=== PATIENT | female | born 1990 ===

== ENCOUNTER 2017-10-28 16:25 | Inpatient (IN) | payer OTHER, SELFPAY ==
[2017-10-28 17:11] LABS: #Basophils 0.1 thou/uL (0.0-0.2); #Eosinphils 0.1 thou/uL (0.0-0.7); #Monocytes 0.8 thou/uL (0.11-0.59); #Neutrophils 8.1 thou/uL (1.40-6.50); %Basophils 0.6 % (0.0-1.0); %Eosinophils 0.5 % (0.0-10.0); %Lymphocytes 24.9 % (21.0-51.0); %Monocytes 6.8 % (0.0-10.0); %Neutrophils 67.3 % (42.0-75.0); Hemoglobin 14.8 g/dL (12.0-16.0); Mean Corpuscular HGB CONC 32.2 g/dL (32.0-36.0); Mean Corpuscular Hemoglobin 29.1 pg (27.0-31.0); Mean Corpuscular Volume 90.4 fl (81.0-99.0); Mean Platelet Volume 8.6 fL (7.4-10.4); Platelet Count 277 thou/uL (130-400); RBC Distribution Width 12.4 % (11.5-14.5); Red Blood Cell (RBC) Count 5.09 mill/uL (4.20-5.40); White Blood Cell (WBC) Count 12.1 thou/uL (4.8-10.8)
[2017-10-28 17:19] LABS: Bilirubin Negative (Negative); Blood, Urine Negative (Negative); Clarity CLEAR (Clear); Glucose, Urine (Dipstick) >=1000 mg/dL (Negative); Leukocyte Negative (Negative); Nitrite Negative (Negative); Protein, Urine (Dipstick) Negative (Neg-Trace); Specific Gravity, Urine 1.035 (1.002-1.036); Urobilinogen 0.2 mg/dL (0.2-1.0); pH, Urine 5.5 (5.0-9.0)
[2017-10-28 17:33] LABS: Base Excess-Venous -0.5 mmol/L (0 (+/- 2.5)); CO2 Tension (PvCO2) 53.3 mmHg (41.0-51.0); Calcium, Ionized 1.07 mmol/L (1.12-1.32); Hemoglobin - Calc 16.8 g/dL (12.0-18.0); O2 Tension (PvO2) 27.9 mmHg (35.0-45.0); Potassium 5.7 mmol/L (3.4-4.7); T. Carbon Dioxide 28.6 mmol/L (1.0-85.0); pH (Venous) 7.312 (7.35-7.45); vO2 Saturation-calc 45.7 % (94-98)
[2017-10-28 17:35] LABS: BHCG - Serum Negative (NEGATIVE); Pregs Control Background? CLEAR/WHITE (CLR/WHITE); Pregs Control Bar Appear? YES (CONTROL BAR)
[2017-10-28 17:39] LABS: ALT (SGPT) 35 U/L (8-55); AST (SGOT) 18 U/L (5-34); Albumin 4.7 g/dL (3.5-5.0); Alkaline Phosphatase 175 U/L (40-150); Anion Gap 23 mmol/L (10-20); BUN (Urea Nitrogen) 14 mg/dL (7.0-18.7); Bilirubin, Total 0.7 mg/dL (0.2-1.2); Calc. Creatinine Clearance 0 mL/min (70-130); Calcium 9.6 mg/dL (7.8-10.44); Carbon Dioxide 19 mmol/L (22-29); Chloride 80 mmol/L (98-107); Estimated GFR-MDRD 24; Globulin 3.7 g/dL (2.4-3.5); Potassium 4.3 mmol/L (3.5-5.1); Protein, Total 8.4 g/dL (6.0-8.3)
[2017-10-28 17:43] LABS: Glucose 1320 mg/dL (70-105); Sodium 118 mmol/L (136-145)
[2017-10-28] MEDS ORDERED: Insulin Regular 100 units/100 ml in NS IVPB SCH (18:15)
[2017-10-28 19:40] LABS: ALT (SGPT) 30 U/L (8-55); AST (SGOT) 18 U/L (5-34); Albumin 3.8 g/dL (3.5-5.0); Alkaline Phosphatase 125 U/L (40-150); Anion Gap 17 mmol/L (10-20); BUN (Urea Nitrogen) 12 mg/dL (7.0-18.7); Bilirubin, Total 0.5 mg/dL (0.2-1.2); Calc. Creatinine Clearance 0 mL/min (70-130); Carbon Dioxide 21 mmol/L (22-29); Chloride 99 mmol/L (98-107); Estimated GFR-MDRD 42; Globulin 2.9 g/dL (2.4-3.5); Glucose 735 mg/dL (70-105); Potassium 4.7 mmol/L (3.5-5.1); Protein, Total 6.7 g/dL (6.0-8.3); Sodium 132 mmol/L (136-145)
[2017-10-28] MEDS ORDERED: CCU Electrolyte Replacement 1 EACH IVPB ONE (21:30)
[2017-10-28] MEDS ORDERED: Ondansetron HCl/PF 4 MG/2 ML Vial IVP PRN (21:30)
[2017-10-28] MEDS ORDERED: Acetaminophen 325 MG TAB PO PRN (21:30)
[2017-10-28] MEDS ORDERED: NS 0.9% w/ 20 MEQ KCL 1,000 ML IV PRN (21:30)
[2017-10-28] MEDS ORDERED: Ondansetron ODT 4 MG TAB PO PRN (21:30)
[2017-10-28] MEDS ORDERED: D5 1/2 NS w/20 mEq KCL 1,000 ML IV PRN (21:30)
[2017-10-28] MEDS ORDERED: Dextrose 5 %-0.45 % NaCl 1,000 ML IV PRN (21:30)
[2017-10-28] MEDS ORDERED: Acetaminophen 650 MG Suppository PR PRN (21:30)
[2017-10-28] MEDS ORDERED: Sodium Chloride 0.9% 1,000 ML IV PRN ×4 (21:30)
[2017-10-28] MEDS ORDERED: Bisacodyl 5 MG TAB PO PRN (21:30)
[2017-10-28] MEDS ORDERED: Magnesium 2 GM/NS 0.9% 100 ML 2 GM in Premix Bag 1 BAG IVPB PRN (21:38)
[2017-10-28] MEDS ORDERED: Potassium Phosphate 9 MMOL in Sodium Chloride 0.9% 100 ML IVPB PRN (21:38)
[2017-10-28] MEDS ORDERED: Potassium Chloride 40 MEQ in Premix Bag 1 BAG IVPB PRN (21:38)
[2017-10-28] MEDS ORDERED: Potassium Chloride 40 MEQ in Sodium Chloride 0.9% 250 ML 250 ML IVPB PRN (21:38)
[2017-10-28] MEDS ORDERED: Potassium Phosphate 15 MMOL in Sodium Chloride 0.9% 250 ML 250 ML IV PRN (21:38)
[2017-10-28] MEDS ORDERED: Potassium Chloride 20 MEQ TAB PO PRN (21:38)
[2017-10-28] MEDS ORDERED: Magnesium Oxide 400 MG TAB PO PRN ×2 (21:38)
[2017-10-28] MEDS ORDERED: CCU ELECTROLYTE REPLACEMENT PROTOCOL FS PRN (21:38)
[2017-10-28] MEDS ORDERED: Potassium Phosphate 12 MMOL in Sodium Chloride 0.9% 250 ML 250 ML IV PRN (21:38)
[2017-10-28] MEDS ORDERED: Docusate 100 MG CAP PO SCH (21:45)
[2017-10-28] MEDS ORDERED: Famotidine 20 MG TAB PO SCH (21:45)
[2017-10-28 22:26] LABS: Anion Gap 14 mmol/L (10-20); BUN (Urea Nitrogen) 10 mg/dL (7.0-18.7); Calc. Creatinine Clearance 94 mL/min (70-130); Calcium 9.1 mg/dL (7.8-10.44); Carbon Dioxide 25 mmol/L (22-29); Chloride 100 mmol/L (98-107); Estimated GFR-MDRD 49; Glucose 420 mg/dL (70-105); Potassium 4.1 mmol/L (3.5-5.1); Sodium 135 mmol/L (136-145)
[2017-10-28] MEDS: NS 0.9% w/ 20 MEQ KCL 1,000 ML IV PRN (22:35)
[2017-10-28] MEDS: Docusate 100 MG CAP PO SCH (22:36)
[2017-10-29] MEDS: NS 0.9% w/ 20 MEQ KCL 1,000 ML IV PRN (01:17)
[2017-10-29 02:21] LABS: #Basophils 0.1 thou/uL (0.0-0.2); #Eosinphils 0.2 thou/uL (0.0-0.7); #Lymphocytes 3.7 thou/uL (1.20-3.40); #Monocytes 0.7 thou/uL (0.11-0.59); #Neutrophils 4.8 thou/uL (1.40-6.50); %Basophils 0.8 % (0.0-1.0); %Eosinophils 2.3 % (0.0-10.0); %Lymphocytes 39.1 % (21.0-51.0); %Monocytes 7.3 % (0.0-10.0); %Neutrophils 50.6 % (42.0-75.0); Hemoglobin 12.3 g/dL (12.0-16.0); Mean Corpuscular HGB CONC 34.2 g/dL (32.0-36.0); Mean Corpuscular Hemoglobin 29.1 pg (27.0-31.0); Mean Corpuscular Volume 85.3 fl (81.0-99.0); Mean Platelet Volume 7.7 fL (7.4-10.4); Platelet Count 221 thou/uL (130-400); Red Blood Cell (RBC) Count 4.22 mill/uL (4.20-5.40); White Blood Cell (WBC) Count 9.4 thou/uL (4.8-10.8)
[2017-10-29 02:57] LABS: Anion Gap 10 mmol/L (10-20); BUN (Urea Nitrogen) 7 mg/dL (7.0-18.7); Calc. Creatinine Clearance 155 mL/min (70-130); Calcium 7.7 mg/dL (7.8-10.44); Carbon Dioxide 21 mmol/L (22-29); Chloride 110 mmol/L (98-107); Estimated GFR-MDRD 87; Glucose 166 mg/dL (70-105); Potassium 3.8 mmol/L (3.5-5.1); Sodium 137 mmol/L (136-145)
--- NOTE | 2017-10-29 03:00 | HP ---
PRIMARY CARE PHYSICIAN: TL Yu CHIEF COMPLAINT: Extreme thirst and weight loss. HISTORY OF PRESENT ILLNESS: This is a 27-year-old -[place]er female with a family history of early onset and type 2 diabetes mellitus, who presents with a 3-week history of heavy thirst, polyuria, and a couple of episodes of vomiting along with about a 15-pound weight loss. She denies any other complaints. She presented to the emergency room and was found to have a blood sugar of 1320 as well as a mild gap acidosis ketones and positive ketones, positive beta hydroxybutyrate in her serum. Patient was given IV fluids and insulin in the emergency room and is feeling much better. She has been admitted for new-onset diabetes mellitus with hyperosmotic hyperglycemia and mild ketoacidosis. PAST MEDICAL HISTORY: None. PAST SURGICAL HISTORY: None. PSYCHIATRIC HISTORY: Depression. SOCIAL HISTORY: No tobacco, alcohol, or illicit drug use. She is present in the room with her roommate as well as her boyfriend. She is estranged from her parents, but does have a sister she is close with Baylee Ramos, who she stated would be her medical power of ad copy writer. FAMILY HISTORY: Both parents with DM type 2, insulin dependent, early onset in 20s and 30s. No other family medical problems. ALLERGIES: No known drug allergies. CURRENT MEDICATIONS: 1. Zoloft. 2. Abilify dosage is not available at this time. REVIEW OF SYSTEMS: Constitutional: No fevers or chills. She has had a weight loss as per HPI. Eyes: No double vision. She has had progressively blurred vision over the last 3 weeks. ENT: No congestion, drainage, or sore throat. She has had very dry mouth all the time. Cardiovascular: No chest pain, no palpitations, or racing heart. Pulmonary: No coughing, wheezing, or shortness of breath. Gastrointestinal: She had some nausea and vomiting a few days ago with another episode this morning, but none since. No abdominal pain, no diarrhea or constipation. Genitourinary: Polyuria as per HPI. No dysuria or hematuria. Musculoskeletal: No muscle aches or joint pains. Skin: No rashes or lesions noted. Neurologic: Patient has had a little bit of dizziness is better now and she had some focal tingling in her left fingertips a few days ago and that resolved. No other numbness, tingling, or focal weakness. Psychiatric: She reports some baseline depression that is controlled. PHYSICAL EXAMINATION: VITAL SIGNS: Blood pressure 119/80, pulse 99, respirations 17, temperature 98.3 , O2 sat 99% on room air. GENERAL: This is a well-developed, obese female in no apparent distress. HEENT: Pupils equal, round, and reactive to light. EXTREMITIES: Intact. Oropharynx is clear without lesions, erythema, or exudate. NECK: Supple, no lymphadenopathy, no thyroid nodules or enlargement, no JVD. HEART: Regular rate and rhythm. No murmurs, rubs, or gallops. LUNGS: Clear to auscultation bilaterally. No wheezes, crackles, or rhonchi. ABDOMEN: Soft, nontender to palpation, normoactive bowel sounds, no hepatosplenomegaly or masses. EXTREMITIES: No clubbing, cyanosis, or edema. She has good peripheral pulses. SKIN: No rashes or lesions. NEUROLOGIC: Strength 5/5 in all extremities. Deep tendon reflexes 2+ in all extremities and she has no facial droop. PSYCHIATRIC: Alert and oriented x3, normal mood and affect. LABORATORY DATA: CBC with white blood cell count of 12.1. The remainder is normal. A VBG done in the emergency room showed a pH of 7.3 with a pCO2 of 53 and a pO2 of 27. Her initial complete metabolic panel showed a sodium of 118, chloride of 80, bicarbonate of 19, anion gap of 23, creatinine of 2.41, glucose of 1320, alkaline phosphatase of 175. Remainder was normal. Her test was negative. Lipase was negative. Creatine kinase is a little elevated at 222. Her serum osmolality was 326. Repeat complete metabolic panel after fluids in the emergency room showed a sodium of 132, potassium of 4.7, carbon dioxide of 21, and anion gap is closed at 17, creatinine of 1.49, and glucose of 735. Urine showed trace ketones and glucose greater than 1000. Toxicology showed beta-hydroxybutyrate of 0.43 with some mild elevation. ASSESSMENT: 1. New-onset diabetes mellitus likely type 2 due to the severe elevations and blood sugars with only minimal ketosis. Patient is responding well to fluids and insulin. We will continue insulin drip and continue fluids as per the diabetic ketoacidosis protocol. We will give potassium as well as per the protocol. We will admit patient to the IMCU and monitor closely and will likely start her on basal insulin in the morning. For now, we will give her clear liquid diet, but can advance that as tolerated especially, as we get the blood sugar down. 2. Acute renal failure likely secondary to dehydration from the osmotic diuresis of the blood sugar. We will continue IV fluids. I anticipate continued resolution of her creatinine and sodium improved markedly. 3. Depression. We will continue patient's home medication before. 4. Gastrointestinal prophylaxis. Put patient on Pepcid twice a day. 5. Deep venous thrombosis prophylaxis. Put patient on sequential compression devices on bed on Lovenox subcutaneous. CODE STATUS: I did discuss with patient. She is a FULL CODE. Should she be incapacitated her medical power of ad copy writer would be her sister Baylee Ramos as well as her boyfriend Dirk Kennedy. [facility]
[2017-10-29 05:58] LABS: Anion Gap 8 mmol/L (10-20); BUN (Urea Nitrogen) 6 mg/dL (7.0-18.7); Calc. Creatinine Clearance 145 mL/min (70-130); Calcium 7.4 mg/dL (7.8-10.44); Carbon Dioxide 21 mmol/L (22-29); Chloride 107 mmol/L (98-107); Estimated GFR-MDRD 80; Glucose 254 mg/dL (70-105); Potassium 3.9 mmol/L (3.5-5.1); Sodium 132 mmol/L (136-145)
[2017-10-29 06:02] VITALS: BMI 30.7
[2017-10-29] MEDS: Docusate 100 MG CAP PO SCH ×2 (08:50→20:36)
[2017-10-29] MEDS ORDERED: Enoxaparin Sodium 40 MG/0.4 ML SYRINGE SC SCH (09:00)
[2017-10-29] MEDS ORDERED: Famotidine 20 MG TAB PO SCH (09:00)
--- NOTE | 2017-10-29 10:20 | PDOC.PN ---
- Subjective Encounter Start Date: 10/29/17 Encounter Start Time: 12:00 Subjective: Patient feeling much better. Blood sugars improved overnight. -: No N/V or abdominal pain. Tolerating clears diet well. - Objective Resuscitation Status: Resuscitation Status FULL:Full Resuscitation MAR Reviewed: Yes Vital Signs & Weight: Vital Signs (12 hours) Temp Pulse Resp BP Pulse Ox 10/29/17 07:30 99.0 F 104 H 17 99 10/29/17 07:12 99.0 F 104 H 17 98/72 99 10/29/17 04:00 97.8 F 96 18 113/79 100 Weight Weight 202 lb 15.991 oz I&O: 10/28/17 10/29/17 10/30/17 06:59 06:59 06:59 Intake Total 3303 969 Output Total 450 Balance 2853 969 Result Diagrams: 10/29/17 01:43 10/29/17 05:24 Additional Labs: Accuchecks 10/29/17 10/29/17 10/29/17 10:05 09:08 08:11 POC Glucose 203 H 226 H 217 H 10/29/17 10/29/17 10/29/17 07:25 06:12 05:06 POC Glucose 216 H 224 H 252 H 10/29/17 10/29/17 10/29/17 04:07 03:14 02:19 POC Glucose 206 H 141 H 148 H 10/29/17 10/29/17 10/28/17 01:16 00:09 23:08 POC Glucose 195 H 228 H 249 H 10/28/17 10/28/17 22:24 21:18 POC Glucose 290 H 467 H Phys Exam - Physical Examination Constitutional: NAD HEENT: moist MMs Respiratory: no wheezing, no rales, no rhonchi Cardiovascular: RRR, no significant murmur Gastrointestinal: soft, non-tender, positive bowel sounds Neurological: non-focal, moves all 4 limbs Psychiatric: normal affect, A&O x 3 Dx/Plan (1) Diabetes mellitus with hyperosmolarity without hyperglycemic hyperosmolar nonketotic coma Code(s): E11.00 - TYPE 2 DIAB W HYPROSM W/O NONKET HYPRGLY-HYPROS COMA ([facility]) Status: Acute Comment: new onset DM, hyperglycemia resolved, will d/c D5 in fluids, switch to diabetic diet, start Lantus now 10 units, d/c insulin drip in 3 hours, start Metformin, diabetic and insulin admin education (2) DKA (diabetic ketoacidoses) Code(s): E13.10 - OTH DIABETES MELLITUS WITH KETOACIDOSIS WITHOUT COMA Status : Resolved Qualifiers: Diabetes mellitus type: type 2 Comment: mild, resolved (3) Acute renal failure Status: Resolved Comment: prerenal due to hyperglycemic diuresis, resolved (4) Depression Code(s): F32.9 - MAJOR DEPRESSIVE DISORDER, SINGLE EPISODE, UNSPECIFIED Status : Chronic - Plan cont current plan of care, DVT proph w/lovenox, DVT proph w/SCDs d/c insulin drip, start Metformin and Lantus, education, likely home -: tomorrow or possibly tonight * . - Discharge Day Encounter end time: 12:15
[2017-10-29] MEDS ORDERED: Dextrose 50% Abboject 50 ML SYRINGE IVP PRN (10:43)
[2017-10-29] MEDS ORDERED: Dextrose 5% in Water 1,000 ML IV PRN ×2 (10:43→12:55)
[2017-10-29] MEDS ORDERED: HumaLOG 300 UNITS/3 ML VIAL SC PRN (10:45)
[2017-10-29] MEDS ORDERED: Insulin Glargine 10 UNITS in Pre-Filled Syringe 1 EACH SC SCH (10:45)
[2017-10-29] MEDS ORDERED: metFORMIN 500 MG TAB PO SCH ×2 (10:45→17:00)
[2017-10-29] MEDS ORDERED: Sodium Chloride 0.9% 1,000 ML IV SCH (13:00)
--- NOTE | 2017-10-29 14:07 | CON ---
DATE OF CONSULTATION: 10/29/2017 SERVICE: Pulmonary Medicine. REASON FOR CONSULTATION: IMCU patient. HISTORY OF PRESENT ILLNESS: The patient is a 27-year-old -[place] female with past medical history significant for 15 pounds of weight loss, polyuria, and increased thirst. She presented to the Emergency Department with some of these complaints as well as high blood pressure and weakness. She was found to have an elevated blood sugar of 1300. She was ultimately given several boluses of fluid and put on an insulin drip. Overnight, her blood sugars were under much better control. She has essentially returned to usual state of health. She is tolerating p.o. and denies any current issues. PAST MEDICAL HISTORY: None. PAST SURGICAL HISTORY: None. SOCIAL HISTORY: Negative for alcohol, tobacco or illicit drug use. She is estranged from her parents. She has no exposure to chemicals, dust, asbestos or tuberculosis. FAMILY HISTORY: Both parents have diabetes mellitus, type 2. ALLERGIES: No known drug allergies. MEDICATIONS: List of her inpatient medications were reviewed. Multiple updates were made at this time. REVIEW OF SYSTEMS: General, head, ears, eyes, nose, throat, cardiovascular, respiratory, GI, , musculoskeletal, neurologic and skin is negative except as mentioned in the HPI. PHYSICAL EXAMINATION: VITAL SIGNS: Afebrile, pulse 103, blood pressure 101/62, respirations 19, saturation 98% on room air. GENERAL: The patient is awake, alert, no apparent distress. LUNGS: Excellent air entry. There is no prolonged expiratory phase. No wheezing, rhonchi, or crackles are appreciated. HEART: Normal rate and regular. ABDOMEN: Soft, nontender and nondistended. Bowel sounds are positive. MUSCULOSKELETAL: No cyanosis or clubbing. There is no pitting in the bilateral lower extremities. NEUROLOGIC: Grossly nonfocal. LABORATORY DATA: WBC 9.4, hemoglobin 12.3, and platelets 221. PH 7.31, pCO2 53 , pO2 28. Creatinine 0.85, which is down trending from 2.4. Basic metabolic profile is otherwise unremarkable with normal anion gap and improving bicarbonate level. Sodium 132 has significantly improved. Lipase is unremarkable. Liver function studies are also unremarkable. CK 222. Serum was unremarkable. Urinalysis is positive for glycosuria and ketonuria , which was trace. Beta hydroxybutyric acid was minimally elevated at 0.43. ASSESSMENT: 1. Type 2 diabetes mellitus, new onset. 2. Acute kidney injury, resolved. 3. Severe dehydration, resolved. 4. Starvation ketosis. PLAN: The patient will be transitioned off of the IV insulin on to p.o. medications, as well as some subcu insulin. Hopefully, the insulin will be titrated away as time goes on. She is not requiring much insulin in order to maintain her blood sugars. From my perspective, she is stable for transition to the medical unit. Pulmonary will continue to follow along for the time being , but she will need outpatient follow up with Endocrinology and/or primary care physician. 70 minutes have been devoted to this patient in various activities. I personally reviewed all imaging studies and laboratory data noted within this document. For fifty percent of this time, I was interacting with the patient at the bedside or coordinating care with the care team. For the remainder of the time I was immediately available to the patient in the hospital unit. ARELIS
[2017-10-29 19:42] VITALS: BP 111/66; TEMP 98.6
[2017-10-29] MEDS ORDERED: Insulin Glargine 8 UNITS in Pre-Filled Syringe 1 EACH SC SCH (21:00)
[2017-10-29] MEDS ORDERED: INSULIN DETEMIR SC SCH (21:00)
[2017-10-29] MEDS ORDERED: ADMIXTURE FEE SC SCH (21:00)
--- NOTE | 2017-10-30 12:24 | DIS ---
PRIMARY CARE PHYSICIAN: TL Yu REASON FOR ADMISSION: New onset diabetes mellitus. DISCHARGE DIAGNOSES: 1. New onset diabetes mellitus type 2 with hyperglycemia and hyperosmolarity, that are resolved. 2. Starvation ketosis, resolved. 3. Acute renal failure, resolved. 4. Depression. PROCEDURES: None. CONSULTATIONS: Pulmonology, Dr. Chua. PERTINENT LABORATORY DATA: Initial blood sugar on admission 1320 down to the mid 100s at discharge, creatinine 2.41 on admission, down to 0.85 at discharge. Carbon dioxide 19, anion gap 23 on admissio n, down to a carbon dioxide of 21 and anion gap of 8 at discharge. SUMMARY OF HOSPITAL COURSE: This is a 27-year-old -[place] female with past medical history of depression, with both parents with early onset diabetes mellitus type 2. She presented with three week history of polydipsia, polyuria, and some weight loss, was found to have a severely elevated bl ood sugar along with a mild gap acidosis and some ketones. However, patient did not have any symptom atology of DKA. She was given insulin drip and watch in the IMCU, she was also given IV fluids with quick resolution of her hyperglycemia and hyperosmolarity. Patient's gap resolved quickly as well wi th fluids. Dr. Chua of Pulmonology was consulted. He agreed that she appeared to be more of a st arvation ketosis along with a new onset type 2 diabetes mellitus. She was easily transitioned off of the insulin drip and given 10 units of long-acting Lantus along with starting metformin. The patien t was able to eat and did not have any nausea, vomiting, or abdominal pain. On second hospital day, she was doing well and eager to go home. She was able to give herself her insulin. The patient is b eing discharged to follow up with her primary care physician for continued management and possible re ferral to manager molecular depending on primary care's comfort level on taking care of diabetes. DISCHARGE MANAGEMENT: Discharged home. Follow up with TL Yu. ACTIVITIES: As tolerated. DIET: Diabetic diet. She is to product picker a glucometer to check her blood sugars regularly and keep a log and bring it to her appointment in the next 1-2 days with her primary care doctor. DISCHARGE MEDICATIONS: 1. Lantus 10 units subcu daily, 1 vial dispensed. 2. Metformin 500 mg twice a day, 60 tablets dispensed. She is also to continue her home medications . 3. Abilify 30 mg daily. 4. Wellbutrin sustained release 150 mg daily. 5. Zoloft 100 mg daily.
== END 2017-10-29 21:29 | disposition home or self-care (01) | DRG 638 ==
LOC: ERS 16:25 → IMCU/EMU 17:45
PROVIDERS: ADMIT Emergency Medicine; ATTEND Emergency Medicine
DX: E11.10 Type 2 diabetes mellitus with ketoacidosis without coma (principal); N17.9 Acute kidney failure, unspecified; R63.4 Abnormal weight loss; E11.00 Type 2 diabetes mellitus with hyperosmolarity without nonketotic hyperglycemic-hyperosmolar coma (NKHHC); F32.9 Major depressive disorder, single episode, unspecified; E86.0 Dehydration
CPT/HCPCS: 36415; 36416; 80053; 81003; 82010; 82330; 82550; 82803; 83690; 83930; 84703; 85025; 93005; J1815; J7050